=== PATIENT | female | born 1965 | race Caucasian/White ===

== ENCOUNTER 2023-02-05 10:10 | Outpatient (CLI) | payer BC ==
[~2023-02-05] VITALS: Ht 162.6 cm; Wt 117.9 kg
[2023-02-05] MEDS ORDERED: albuterol 2.5 MG/3 ML nebule NEB ONE (10:45)
== END 2023-02-05 23:59 | disposition home or self-care (01) ==
LOC: RT 10:10
PROVIDERS: ATTEND Family Medicine
DX: J45.998 Other asthma (principal); R05.9 Cough, unspecified; E66.9 Obesity, unspecified; Z79.899 Other long term (current) drug therapy
CPT/HCPCS: 94060; 94760